=== PATIENT | male | born 1995 | race Hispanic/Latino ===

== ENCOUNTER 2024-11-29 15:29 | Emergency (ER) | payer SELFPAY ==
[2024-11-29] VITALS (11 sets, daily range): BP systolic 119–146; BP diastolic 63–93; PULSE 81–108; RESP 18; TEMP 37.3; O2SAT 96–98; BMI 33.6
[2024-11-29 16:11] LABS: Add Manual Diff / Slide Review NO; Basophils Absolute Auto 0 /uL (0-100); Eosinophils Absolute Auto 0 /uL (0-450); Eosinophils Percent Auto 0.1 % (2-4); Hematocrit 48.5 % (41-53); Hemoglobin 16.8 g/dL (13.5-17.5); Lymphocytes Absolute Auto 400 /uL (1100-4500); Lymphocytes Percent Auto 1.8 % (25-40); Mean Corpuscular HGB Conc 34.5 % (30-36); Mean Corpuscular Hemoglobin 32.5 PG (26-34); Mean Corpuscular Volume 94.1 fL (80-100); Monocytes Absolute Auto 600 /uL (0-900); Monocytes Percent Auto 2.9 % (3-14); Neutrophils Absolute Auto 19600 /uL (1500-7000); Neutrophils Percent Auto 95.2 % (50-75); Platelet Count 287 X10^3/uL (150-400); Red Blood Cell Count 5.16 X10^6/uL (4.5-5.9); Red Cell Distribution Width 13.2 % (11.6-14.8); White Blood Cell Count 20.6 X10^3/uL (4.5-11.0)
--- NOTE | 2024-11-29 16:21 | ED_ITS ---
HPI - Abdominal Pain General Chief Complaint: Abdominal Pain Stated Complaint: Abd Pain, Diarrhea, Vomiting, Aches Time Seen by Provider: 11/29/24 16:21 Source: patient Mode of arrival: Ambulatory History of Present Illness HPI narrative: 29-year-old male without any significant past medical history presents for abdominal pain nausea vomiting diarrhea chills headache generalized aches since this morning, states he has not been able to tolerate anything p.o. secondary to this. States that he has also been having some flu-like symptoms such as cough sore throat for the past couple of days. Patient denies any recent travel no known sick contacts not complaining of any headache visual disturbances chest pain shortness of breath or any other GI/ symptoms time. Related Data Home Medications Medication Instructions Recorded Confirmed [yrte] QDAY ##0 01/10/12 06/03/20 Previous Rx's Medication Instructions Recorded ondansetron 4 mg disintegrating 4 mg PO Q8H PRN nausea and 11/29/24 tablet vomiting 5 days #15 tabs Allergies Allergy/AdvReac Type Severity Reaction Status Date / Time peanut Allergy Mild UNKNOWN Verified 06/03/20 14:26 Review of Systems Review of Systems Narrative: General: Denies fever, chills, weight loss HEENT: Denies headache, eye drainage, eye irritation, head trauma, sore throat, voice change Cardiovascular: Denies any chest pain, palpitations, shortness of breath, tachycardia Respiratory: Denies any shortness of breath, cough, wheeze, stridor GI/: Positive abdominal pain, nausea, vomiting, diarrhea, denies bright red blood per rectum, melanotic stools, urinary frequency, urinary retention, dysuria, hematuria MSK: Denies any joint pain, muscle pains, swelling Skin: Denies any rashes, lesions, discoloration Neuro: Denies any headache, lightheadedness, dizziness, fainting, weakness Psych: Denies SI/HI Patient History Social History Smoking Status: Never smoker Smoking Status: Never smoker Exam Narrative Exam Narrative: General: Cooperative, comfortable, well-developed, not in acute distress HEENT: Normocephalic, atraumatic, PERRLA, normal sclera, eyelids normal, Neck: Active full range of motion, atraumatic Chest: Normal to inspection, negative crepitus, no overlying erythema ecchymosis Respiratory: Normal respiratory effort, not in acute respiratory distress, clear to auscultation bilaterally negative cough, wheeze, tachypnea, rhonchi, rales Cardiology: Regular rate rhythm negative gallop, murmur, rubs GI/: Normal to inspection, soft, nonrigid, no tenderness to palpation, exam deferred MSK: Full range of active range of motion of all 4 extremities, atraumatic Skin: No rashes lesions noted Neuro: Alert awake oriented x3, moves all 4 extremities spontaneously, cranial nerves intact, able to answer all questions appropriately follows commands appropriately Psych: Cooperative, negative suicidal or homicidal ideations Initial Vital Signs Initial Vital Signs: Vital Signs Temperature 99.1 F 11/29/24 15:37 Pulse Rate 108 H 11/29/24 15:37 Respiratory Rate 18 11/29/24 15:37 Blood Pressure 132/85 11/29/24 15:37 Pulse Oximetry 98 11/29/24 15:37 Oxygen Delivery Method Room Air 11/29/24 15:37 Course Orders Ordered: ED Orders 11/29/24 16:00 Complete Blood Count AUTO DIFF Stat Comprehensive Metabolic Panel Stat Lipase Stat 11/29/24 16:21 CT abdomen pelvis w con Stat 11/29/24 17:30 Urine Microscopic Stat Ondansetron HCl (Ondansetron 4 Mg/2 Ml Inj) 4 mg IV NOW PRN PRN Reason: Nausea And Vomiting Last Admin: 11/29/24 17:39 Dose: 4 mg Documented By: DAGOBERTO Ondansetron HCl (Ondansetron 4 Mg Odt) 4 mg PO NOW PRN PRN Reason: Nausea And Vomiting Discontinued Medications Sodium Chloride (Normal Saline 0.9%) 1,000 mls @ 1,000 mls/hr IV BOLUS ONE Stop: 11/29/24 17:20 Last Admin: 11/29/24 17:39 Dose: 1,000 mls/hr Documented By: DAGOBERTO Ketorolac Tromethamine (Ketorolac 30 Mg/Ml Vial) 15 mg IV NOW ONE Stop: 11/29/24 16:22 Last Admin: 11/29/24 17:37 Dose: 15 mg Documented By: DAGOBERTO Vital Signs Vital signs: Vital Signs - 8 hr 11/29/24 15:37 11/29/24 16:14 11/29/24 16:14 Temperature 99.1 F Pulse Rate 108 H 103 H Respiratory Rate 18 Blood Pressure 132/85 136/90 Pulse Oximetry 98 98 Oxygen Delivery Method Room Air 11/29/24 16:30 11/29/24 16:31 11/29/24 16:31 Temperature Pulse Rate 102 H 99 H Respiratory Rate Blood Pressure 146/80 H Pulse Oximetry 97 97 Oxygen Delivery Method 11/29/24 16:56 11/29/24 17:11 11/29/24 17:30 Temperature Pulse Rate 81 Respiratory Rate Blood Pressure 139/79 139/93 H Pulse Oximetry 96 Oxygen Delivery Method 11/29/24 17:37 Temperature Pulse Rate 86 Respiratory Rate Blood Pressure Pulse Oximetry 98 Oxygen Delivery Method MDM - Abdominal Pain Differential Diagnosis Differential diagnosis: Likely acute appendicitis, constipation, diverticulitis and other (Electrolyte abnormality, urinary tract infection, COVID, flu) Lab Data 11/29/24 16:00 11/29/24 16:00 Labs: Lab Results 11/29/24 Range/Units 16:00 WBC 20.6 H (4.5-11.0) X10^3/uL RBC 5.16 (4.5-5.9) X10^6/uL Hgb 16.8 (13.5-17.5) g/dL Hct 48.5 (41-53) % MCV 94.1 (80-100) fL MCH 32.5 (26-34) PG MCHC 34.5 (30-36) % RDW 13.2 (11.6-14.8) % Plt Count 287 (150-400) X10^3/uL Neut % (Auto) 95.2 H (50-75) % Lymph % (Auto) 1.8 L (25-40) % [place] % (Auto) 2.9 L (3-14) % Eos % (Auto) 0.1 L (2-4) % Baso % (Auto) 0.0 (0-2) % Neut # (Auto) 39808 H (1161-8960) /uL Lymph # (Auto) 400 L (7837-1734) /uL [place] # (Auto) 600 (0-900) /uL Eos # (Auto) 0 (0-450) /uL Baso # (Auto) 0 (0-100) /uL Sodium 140 (137-145) mmol/L Potassium 4.2 (3.4-5.1) mmol/L Chloride 106 (98-107) mmol/L Carbon Dioxide 23 (22-32) mmol/L BUN 12 (9-20) mg/dL Creatinine 1.01 (0.66-1.25) mg/dL Estimated GFR > 60 (>60) mL/min BUN/Creatinine Ratio 11.9 (6-22) Glucose 130 H (70-100) mg/dL Calcium 9.3 (8.4-10.2) mg/dL Total Bilirubin 1.1 (0.2-1.3) mg/dL AST 40 (17-59) IU/L ALT 63 H (<50) IU/L Alkaline Phosphatase 150 H (38-126) U/L Total Protein 8.0 (6.3-8.2) g/dL Albumin 4.8 (3.5-5.0) g/dL Globulin 3.2 (1.7-4.1) g/dL Albumin/Globulin Ratio 1.5 (1.0-2.8) Lipase 37 (23-300) U/L Point of care testing: Urine Dip Bedside Urine Glucose Negative Bedside Urine Bilirubin - Negative Bedside Urine Ketone + 15 Urine Specific [place] 1.030 Bedside Urine Occult Blood +/- Bedside Urine pH 6 Bedside Urine Protein +/- 15 Bedside Urine Urobilinogen - Negative Bedside Urine Nitrite - Negative Bedside Urine Leukocytes - Negative Esterase Imaging Data CT scan - abdomen/pelvis: Radiologist's Impression: [place] [address] CT Scan Report Signed Patient: Antonio Zhao MR#: [id number] : 1995 Acct:[id number] Age/Sex: 29 / M Date of Service: 11/29/24 Loc: ED Accession Number: [id number] Procedure: CT abdomen pelvis w con Ordering Provider: Rambo Blanchard D.O. PROCEDURE: CT ABDOMEN PELVIS W CON INDICATIONS: diffuse abd pain TECHNIQUE: After the administration of intravenous contrast, axial sections acquired from the lung bases to the pubic symphysis. Coronal and sagittal reformats were performed. For radiation dose reduction, the following was used: automated exposure control, adjustment of mA and/or kV according to patient size. COMPARISON: None. FINDINGS: Lower thorax: The lung bases are clear. Heart size normal. No hiatal hernia. Liver: The liver is diffusely decreased in attenuation without focal mass lesion. Biliary system: No calcified cholelithiasis or pericholecystic inflammation. No intra or extrahepatic bile duct dilatation. Pancreas: Unremarkable without mass or inflammation evident. Spleen: Normal in size and density. Adrenals: Normal morphology and density. Reproductive system: Unremarkable as visualized. Urinary system: Normal renal size and attenuation. No renal calculi, hydronephrosis, or solid mass present. Urinary bladder unremarkable. Gastrointestinal system: The bowel is unremarkable without evidence of bowel obstruction or inflammation. The stomach appears unremarkable. Appendix: No findings to suggest acute appendicitis. Peritoneal spaces: No mesenteric or retroperitoneal adenopathy. No free air. No free fluid. Vasculature: The IVC, aorta and iliac vasculature are unremarkable. Abdominal wall: Abdominal wall intact without evidence of ventral or inguinal hernias. Musculoskeletal: Normal bone mineralization. No acute fractures. IMPRESSION: No acute CT findings in abdomen and pelvi MDM Narrative Medical decision making narrative: 29-year-old male with no significant past medical history comes in for flu-like symptoms abdominal pain nausea vomiting diarrhea ongoing persistent for the past day, no recent travel no known sick contacts. Patient had lab work imaging performed here in the emergency department, patient without signs of urinary tract infection on urinalysis, CT scan without any acute findings, noted to have leukocytosis of 20 however given patient's acute symptoms of nausea vomiting diarrhea most likely reactive in nature, patient states symptoms have completely resolved after administration of medication and fluids here in the emergency department, patient repeat abdominal exam at time of discharge is soft nontender non peritoneal nature he is well-appearing nontoxic, patient was given strict return precautions he verbalized understanding of this and agrees to being discharged home with outpatient follow up Discharge Plan Departure Patient Disposition: Home Clinical Impression: Abdominal pain Instructions: DI for Abdominal Pain-Adult Activity Restrictions/Additional Instructions: Please read the discharge instructions sheet carefully and bring all papers to all doctor follow-up visits, as it may contain information that your doctor may want to see. Disease processes change and evolve, if your symptoms worsen or if you develop any new symptoms that are concerning to you please return for evaluation. Your evaluation today does not show any evidence of any life- threatening/serious illnesses requiring admission to the hospital or surgery. Please follow-up with your doctor for re-evaluation in approximately 1 day. Seek immediate medical attention for any worrisome symptoms. *If you do not have a primary care provider please contact the [facility] Resource line at [phone]. They will ask some questions about your medical history and help get you set up with a doctor in the community. Prescriptions: New ondansetron 4 mg tablet,disintegrating 4 mg PO Q8H PRN (Reason: nausea and vomiting) 5 Days Qty: 15 0RF No Action [Zyrtec] QDAY Qty: 0 Stand Alone Forms: Patient Portal/API/Survey
[2024-11-29 16:29] LABS: Alanine Aminotransferase 63 IU/L (<50); Albumin 4.8 g/dL (3.5-5.0); Albumin Globulin Ratio 1.5 (1.0-2.8); Alkaline Phosphatase 150 U/L (38-126); Aspartate Aminotransferase 40 IU/L (17-59); BUN Creatinine Ratio 11.9 (6-22); Bilirubin Total 1.1 mg/dL (0.2-1.3); Blood Urea Nitrogen 12 mg/dL (9-20); Calcium 9.3 mg/dL (8.4-10.2); Carbon Dioxide 23 mmol/L (22-32); Chloride 106 mmol/L (98-107); Estimated Glomerular Filt Rate > 60 mL/min (>60); Globulin 3.2 g/dL (1.7-4.1); Glucose 130 mg/dL (70-100); HEMOLYSIS < 15 (0-50); Lipase 37 U/L (23-300); Potassium 4.2 mmol/L (3.4-5.1); Sodium 140 mmol/L (137-145)
[2024-11-29] MEDS: KETOROLAC 30 MG/ML VIAL 15 MG IV (17:37)
[2024-11-29] MEDS: SODIUM CHLORIDE 0.9% 1,000 ML 1000 ML IV (17:39)
[2024-11-29] MEDS: ONDANSETRON 4 MG/2 ML INJ IV (17:39)
[2024-11-29 18:18] LABS: Mucus Urine 1+ (Negative); Squamous Epithelial Cell Urine 0-1 /HPF (0-5/HPF); Urine Volume 10mL (spun); WBC Urine 0-1/HPF (0-5/HPF)
[2024-11-29 18:19] LABS: Bacteria Urine Few (2-10); Culture Indicated Urine Cult Not Indicated; RBC Urine None Seen (0-5/HPF)
== END 2024-11-29 19:00 | disposition home or self-care (01) ==
PROVIDERS: Emergency Provider Student in an Organized Health Care Education/Training Program
DX: R10.9 Unspecified abdominal pain (principal); R11.2 Nausea with vomiting, unspecified
CPT/HCPCS: 74177; 80053; 81003; 81015; 83690; 85025; 96361; 96374; 96375; 99283; 99284; J1885; J2405; Q9967